=== PATIENT | female | born 1965 | race African-American/Black ===

== ENCOUNTER 2017-05-17 18:31 | Inpatient (IN) | payer MEDICAID ==
[~2017-05-17] VITALS: Ht 165.1 cm; Wt 73.5 kg
[2017-05-17 18:40] VITALS: Ht 165.1 cm; Wt 73.5 kg
[2017-05-17 19:04] LABS: PLATELET COUNT 190 x10^3mcL (130-400); RED CELL DISTRIBUTION WIDTH 14.4 % (11.5-14.5)
[2017-05-17 19:12] LABS: CALCIUM 9.1 mg/dL (8.5-10.1); CARBON DIOXIDE 27.6 mmol/L (21-32); CHLORIDE SERUM 103 mmol/L (98-107); CREATININE SERUM 0.7 mg/dL (0.6-1.0); GFR1 > 60 mL/min; GLUCOSE SERUM 98 mg/dL (74-106); POTASSIUM SERUM 3.7 mmol/L (3.5-5.1); SODIUM SERUM 138 mmol/L (136-145)
[2017-05-17 19:16] LABS: ALBUMIN 3.7 g/dL (3.4-5.0); ALKALINE PHOSPHATASE 99 U/L (46-116); ALT/SGPT 29 U/L (14-59); AST/SGOT 17 U/L (15-37); BILIRUBIN TOTAL 0.6 mg/dL (0.20-1.00); LIPASE 105 IU/L (73-393); TOTAL PROTEIN, SERUM 7.7 g/dL (6.4-8.2)
[2017-05-17 21:24] LABS: CHOLESTEROL/HDL RATIO 2.5; MAGNESIUM 2.1 mg/dL (1.8-2.4); PHOSPHOROUS 4.4 mg/dL (2.5-4.9)
[2017-05-17 21:27] LABS: T3 TOTAL 0.88 ng/mL
[2017-05-17 21:30] VITALS: BP 100/67
[2017-05-17 21:32] LABS: FREE T4 0.83 ng/dL (0.76-1.46); T4(THYROXINE) 5.2 ug/dL (4.7-13.3)
[2017-05-17 21:51] VITALS: BP 107/64
[2017-05-17 21:57] LABS: microscopic required? NO
[2017-05-17 22:02] LABS: UA SPECIFIC GRAVITY 1.025 (1.005-1.035); urine erythrocyte NEGATIVE (NEGATIVE)
[2017-05-17 22:13] LABS: AMPHETAMINE QUAL UR NONE DETECTED (NEG <=1000)
[2017-05-18 03:11] LABS: CALCIUM 8.7 mg/dL (8.5-10.1); CARBON DIOXIDE 26.7 mmol/L (21-32); CHLORIDE SERUM 108 mmol/L (98-107); CREATININE SERUM 0.7 mg/dL (0.6-1.0); GFR1 > 60 mL/min; GLUCOSE SERUM 88 mg/dL (74-106); POTASSIUM SERUM 3.7 mmol/L (3.5-5.1); SODIUM SERUM 141 mmol/L (136-145)
[2017-05-18 03:33] LABS: BASOPHIL % 0.6 % (0-2); PLATELET COUNT 175 x10^3mcL (130-400); RED CELL DISTRIBUTION WIDTH 14.4 % (11.5-14.5)
[2017-05-18 05:50] VITALS: BP 97/63
[2017-05-18 10:11] VITALS: BP 123/81
[2017-05-18 13:20] VITALS: BP 105/64
[2017-05-18] MEDS ORDERED: ECO81 PO (14:04)
[2017-05-18] MEDS ORDERED: ZOLOFT50 MG PO (14:06)
== END 2017-05-18 15:05 | disposition home or self-care (01) | DRG 203 ==
LOC: ED 18:31 → DU 20:17
PROVIDERS: Emergency Medicine; Family Medicine
DX: M94.0 Chondrocostal junction syndrome [Tietze] (principal); N17.0 Acute kidney failure with tubular necrosis; G43.909 Migraine, unspecified, not intractable, without status migrainosus; R73.03 Prediabetes; D64.9 Anemia, unspecified; E78.5 Hyperlipidemia, unspecified; F43.10 Post-traumatic stress disorder, unspecified; Z68.24 Body mass index [BMI] 24.0-24.9, adult
CPT/HCPCS: 83880; 84439; 85378; J2405; J3010; J7030; J7040; Q0092